=== PATIENT | male | born 1960 | race Caucasian/White ===

== ENCOUNTER 2022-11-26 13:58 | Outpatient (CLI) | payer MEDICARE ==
--- NOTE | 2022-11-26 16:26 | Ultrasound Report ---
PROCEDURE: Ankle Brachial Index INDICATIONS: INTERMITTENT CLAUDICATION TECHNIQUE: Ankle-brachial indices were obtained bilaterally and recorded. COMPARISONS: None. FINDINGS: Right ankle brachial index (SEVEN): 1.01 Left ankle brachial index (SEVEN): 0.64 Healing potential: Ankle pressures >55 mm Hg in non-diabetics and >80 mm Hg in diabetics are likely to achieve primary h ealing of ischemic foot ulcers. Toe pressures >30 mm Hg are likely to achieve primary healing of ischemic foot ulcers, toe or transme tatarsal amputations. IMPRESSION: 1. Normal right ankle brachial index. 2. Decreased left ankle brachial index suggestive of moderate peripheral arterial disease in left low er extremity. Reviewed by: Mnauel Garcia MD on 11/26/2022 4:25 PM PST Approved by: Manuel Garcia MD on 11/26/2022 4:25 PM PST Station ID: [id number]
--- NOTE | 2022-11-26 18:09 | XRAY Report ---
PROCEDURE: Lumbar Spine 2 View INDICATIONS: BACK PAIN TECHNIQUE: 2 views of the lumbar spine were acquired. COMPARISON: None. FINDINGS: Bones: 5 [id number] vertebrae are present. Straightening of normal lumbar lordosis. This may b e related to positioning and/or concurrent muscle spasms. No acute vertebral body compression fractur es. No suspicious bony lesions. Multilevel lumbar spondylosis. Soft tissues: Overlying bowel gas pattern is normal. No suspicious soft tissue calcifications. IMPRESSION: Lumbar spine without acute fracture. Multilevel lumbar spondylosis. Straightening of nor mal lumbar lordosis. This may be related to positioning and/or concurrent muscle spasms. Reviewed by: Devyn Arteaga MD on 11/26/2022 6:08 PM PST Approved by: Devyn Arteaga MD on 11/26/2022 6:08 PM PST Station ID: [id number]
--- NOTE | 2022-11-26 18:11 | XRAY Report ---
PROCEDURE: Thoracic Spine 2 View INDICATIONS: BACK PAIN TECHNIQUE: 2 views of the thoracic spine were acquired. COMPARISON: None. FINDINGS: Bones: No acute fractures or dislocations. No suspicious bony lesions. 12 pairs of ribs are noted, and appear intact where visualized. Multilevel thoracic spondylosis. Diffuse osteopenia. Soft tissues: No paravertebral stripe thickening. Median sternotomy wires are present and appear int act. Postsurgical changes of previous valvular replacement. IMPRESSION: Thoracic spine without acute fracture or malalignment. Multilevel thoracic spondylosis. Reviewed by: Devyn Arteaga MD on 11/26/2022 6:09 PM [facility] [[email or web address]] Approved by: Devyn Arteaga MD on 11/26/2022 6:09 PM PST Station ID: [id number]
--- NOTE | 2022-11-26 18:13 | XRAY Report ---
PROCEDURE: Cervical Spine 2 View INDICATIONS: NECK PAIN TECHNIQUE: 3 view(s) of the cervical spine were acquired. COMPARISON: None. FINDINGS: Bones: No fractures or dislocations to the superior plate of T1 level. The lateral masses of C1 jorge alberto ear intact on the odontoid view. No suspicious bony lesions. Straightening of cervical lordosis whic h may be related to positioning versus muscle spasm. Multilevel cervical spondylosis most severe at C 5-6. Soft tissues: No prevertebral soft tissue swelling. IMPRESSION: Cervical spine without acute fracture or malalignment. Multilevel cervical spondylosis m ost severe at C5-6. Straightening of cervical lordosis likely related to positioning and/or concurren t muscle spasms. Reviewed by: Devyn Arteaga MD on 11/26/2022 6:12 PM PST Approved by: Devyn Arteaga MD on 11/26/2022 6:12 PM PST Station ID: [id number]
--- NOTE | 2022-11-26 18:16 | XRAY Report ---
PROCEDURE: Shoulder 3 View BILAT INDICATIONS: SHOULDER PAIN TECHNIQUE: 3 views of each of the bilateral shoulder were acquired. COMPARISON: None. FINDINGS: Bones: No acute fractures or dislocations. No suspicious bony lesions. Visualized ribs appear inta ct. Coracoclavicular and acromioclavicular intervals are maintained. Right greater than left bilatera l osteoarthritic changes of the acromioclavicular and glenohumeral joints. Soft tissues: Coarse soft tissue calcifications project over the lateral aspect of the left chest wal l. IMPRESSION: Bilateral shoulder without acute fracture or dislocation. Bilateral acromioclavicular and glenohumeral joint degenerative change which appears more pronounced on the right side. Nonspecific coarse soft tissue calcifications projecting over the posterior lateral left chest wall. Reviewed by: Devyn Arteaga MD on 11/26/2022 6:14 PM PST Approved by: Devyn Arteaga MD on 11/26/2022 6:14 PM PST Station ID: [id number]
== END 2022-11-26 13:59 | disposition home or self-care (01) ==
LOC: DI 13:58
PROVIDERS: ATTEND Nurse Practitioner Family
DX: I73.9 Peripheral vascular disease, unspecified (principal); M47.816 Spondylosis without myelopathy or radiculopathy, lumbar region; M47.814 Spondylosis without myelopathy or radiculopathy, thoracic region; M47.812 Spondylosis without myelopathy or radiculopathy, cervical region; M19.011 Primary osteoarthritis, right shoulder; M19.012 Primary osteoarthritis, left shoulder
CPT/HCPCS: 93922

== ENCOUNTER 2022-12-26 13:59 | Outpatient (CLI) | payer MEDICARE ==
--- NOTE | 2022-12-28 10:19 | MRI Report ---
PROCEDURE: LUMBAR SPINE WO INDICATIONS: LOW BACK PAIN TECHNIQUE: Noncontrast sagittal T1 spin echo and T2 fast echo, sagittal STIR, axial T1 and T2 fast spin echo thr ough the lumbar spine. In cases with scoliosis, additional coronal T2 fast spin echo may be performe d. COMPARISON: Plain films dated 11/26/2022 FINDINGS: Image quality: Excellent. Alignment and Curvature: 5 lumbar type vertebral bodies are present by plain film. There is loss of n ormal lumbar lordosis. 2 mm of retrolisthesis of L2 on L3 and L3 on L4. Bone Marrow: Marrow is of normal overall signal. No acute vertebral body compression fractures. Mi nimal reactive signal within the end plates adjacent to the thoracolumbar intervertebral discs. Spinal Cord: Conus medullaris terminates at the mid L1 level. Visualized cord demonstrates normal s ignal and size. Paraspinous Soft Tissues: No paravertebral masses. T12-L1: Mild disc height loss and desiccation. Mild diffuse disc bulge. Mild facet and ligament flav um hypertrophy. Mild upper lipomatosis. Mild canal stenosis. Mild bilateral foraminal stenosis. L1-L2: Mild disc height loss and desiccation. Mild diffuse disc bulge. Mild facet and ligament fla vum hypertrophy. Mild upper lipomatosis. Mild canal stenosis. Mild bilateral foraminal stenosis. L2-L3: Mild disc height loss and desiccation. Mild facet and ligament flavum hypertrophy. Mild upp er lipomatosis. Mild diffuse disc bulge. Mild canal stenosis. Mild bilateral foraminal stenosis. L3-L4: Mild disc desiccation and diffuse disc bulge with superimposed small central protrusion. Mil d facet and ligament flavum hypertrophy. Mild epidural lipomatosis. Mild canal stenosis. Moderate sub articular foraminal stenosis bilaterally. L4-L5: Disc height loss and desiccation. Mild diffuse disc bulge. Mild facet and ligament flavum hy pertrophy. Mild canal stenosis. Moderate foraminal stenosis bilaterally. L5-S1: Moderate disc desiccation. Mild disc height loss and diffuse disc bulge. Mild bilateral face t hypertrophy. Mild canal stenosis. Mild bilateral foraminal stenosis. IMPRESSION: 1. Multilevel degenerative disc and facet disease, in addition to epidural lipomatosis and ligamentum flavum hypertrophy. 2. Mild multilevel canal stenoses. 3. Multilevel foraminal stenoses, worst at L3-L4 and L4-L5 where there are moderate foraminal stenose s. Reviewed by: Vijaya Villagomez MD on 12/28/2022 10:18 AM PST Approved by: Vijaya Villagomez MD on 12/28/2022 10:18 AM PST Station ID: [id number]
== END 2022-12-26 14:00 | disposition home or self-care (01) ==
LOC: DI 13:59
PROVIDERS: ATTEND Nurse Practitioner Family
DX: M47.816 Spondylosis without myelopathy or radiculopathy, lumbar region (principal); M51.36 Other intervertebral disc degeneration, lumbar region; M48.061 Spinal stenosis, lumbar region without neurogenic claudication; M47.817 Spondylosis without myelopathy or radiculopathy, lumbosacral region; M51.37 Other intervertebral disc degeneration, lumbosacral region; M48.07 Spinal stenosis, lumbosacral region